=== PATIENT | male | born 1940 | race Caucasian/White ===

== ENCOUNTER 2021-01-26 11:50 | Outpatient (CLI) | payer MEDICARE ==
[2021-01-26] MEDS ORDERED: Magnevist 469MG/ML 20 ML VIAL ONE (12:30)
== END 2021-01-26 11:51 | disposition home or self-care (01) ==
LOC: MRI 11:50
PROVIDERS: ATTEND Nurse Practitioner Acute Care
DX: R41.3 Other amnesia (principal); I67.82 Cerebral ischemia; J32.0 Chronic maxillary sinusitis
CPT/HCPCS: 70553; 82565; A9579